=== PATIENT | male | born 1975 | race Two or more races ===

== ENCOUNTER 2024-04-20 18:27 | Emergency (ER) | payer OTHER ==
[~2024-04-20] VITALS: Ht 185.4 cm; Wt 117.0 kg
[~2024-04-20 18:27] MED LIST: LODINE XL500 MG PO; ORPH100T PO; VOLTAREN100 GM TP
[2024-04-20] MEDS ORDERED: METHYLPREDNISOLONE SOD SUCC 40 MG VIAL IV ONE (20:15)
[2024-04-20] MEDS ORDERED: ALBUTEROL SULFATE 3 ML/2.5 MG AMPUL.NEB IH ONE ×4 (20:15→22:34)
[2024-04-20] MEDS ORDERED: METHYLPREDNISOLONE SOD SUCC 40 MG VIAL ONE (20:18)
[2024-04-20 20:48] LABS: HEMATOCRIT 44.2 % (39.0-48.0); HEMOGLOBIN 15.5 g/dL (13-16.00); MEAN CELL VOLUME 90.1 fL (80.0-100.00); MEAN CORPUSCULAR HEMOGLOBIN 31.6 pg (27.00-32.0); MEAN CORPUSCULAR HGB CONC 35.1 g/dl (32.0-36.0); PLATELET COUNT 198 K/uL (150-450); RED BLOOD COUNT 4.91 M/uL (4.00-6.00); RED CELL DISTRIBUTION WIDTH 13.5 % (11.5-14.5)
[2024-04-20 21:15] LABS: ALBUMIN 3.5 gm/dL (3.4-5.0); BILIRUBIN TOTAL 0.28 mg/dL (0.3-1.2); CALCIUM 9.3 mg/dL (8.5-10.1); CREATININE SERUM 0.92 mg/dL (0.70-1.30); GFR 88.18; GLOBULINA 3.9 G/DL (2.4-3.5); POTASSIUM 3.6 mEq/L (3.5-5.1); TOTAL PROTEIN 7.4 gm/dL (6.4-8.2)
[2024-04-20 21:16] LABS: ABG PH 7.426 (7.35-7.45); ABG PO2 89.5 mmHg (80-100); ABG pCO2 36.8 mmHg (35-45); BASE EXCESS -0.3 mmol/l; BICARBONATE 23.7 mmol/l (23-25); SaO2 97.1 %; Tco2 24.8 mmol/l; allen test SATISFACTORY; puncture site RADIAL LEFT
[2024-04-20 21:17] LABS: o2 21 %
== END 2024-04-20 23:57 | disposition home or self-care (01) ==
LOC: ER 18:28
PROVIDERS: Emergency Medicine
DX: J45.901 Unspecified asthma with (acute) exacerbation (principal); D86.89 Sarcoidosis of other sites; F17.210 Nicotine dependence, cigarettes, uncomplicated